=== PATIENT | female | born 1975 | race Caucasian/White ===

== ENCOUNTER → 2017-01-06 | Outpatient (CLI) | payer MEDICAID | LOC: FIMAGING 09:41 | PROVIDERS: ATTEND Nurse Practitioner | DX: D25.2 Subserosal leiomyoma of uterus (principal) ==

== ENCOUNTER 2018-08-24 15:11 | Emergency (ER) | payer MEDICAID ==
--- NOTE | 2018-08-24 15:39 | EDPHY ---
H & P Time Seen by Provider: 08/24/18 15:27 HPI/ROS: CHIEF COMPLAINT: Abdominal pain diarrhea HISTORY OF PRESENT ILLNESS: Patient is history of ulcerative colitis but has not had a flare in several years. Worse over the past month and much worse over the past week. Here with her boyfriend who also participates in give me the history. She is under extra stress with her cat having had repeated dental surgeries and some type of dispute with her neighbor. She last 10 lb this month. Associated with bloody mucus in her stool. No local pantograph setter. REVIEW OF SYSTEMS: Eye: no change in vision ENT: no sore throat Cardiac: no chest pain or syncope, does have lightheadedness Pulmonary: no cough or SOB Abdomen: The HPI Musculoskeletal: no back pain Skin: no rash Neuro: no headache Constitutional: no fever : no urinary symptoms A comprehensive 10 point review of systems is otherwise negative aside from elements mentioned in the history of present illness. PAST MEDICAL HISTORY: Ulcerative colitis diagnosed in [place] 6 years ago and scoliosis Social history: Primary care provider out of town, no pantograph setter General Appearance: Alert and conversant, cooperative. Eyes: No scleral icterus. ENT, Mouth: Dry mucous membranes. Respiratory: Normal respiratory effort, breath sounds equal, lungs are clear to auscultation. Cardiovascular: Regular rate and rhythm. Gastrointestinal: Abdomen is soft and non tender. Neurological: Alert, face symmetric, normal motor and sensory in extremities. Skin: Warm and dry, no rashes. Musculoskeletal: No peripheral edema. Psychiatric: Not agitated. Emergency Department course/MDM: Patient does not want steroids or anti-inflammatories. She would like a gastroenterology referral but wants to keep treating herself with elemental diet with her capsule maker. I think it is reasonable and that she is tachycardic and mildly dehydrated but isn't febrile or toxic and has a benign abdominal examination. 1709: Results discussed with the patient. Ariane recommends steroid taper then oral Mesalamine. Start Lialda 2.4g daily, 40mg prednisone daily x 2weeks, will call Monday for f/u next week. Discussed with the patient. Prescriptions written. She is a little bit reluctant to take medications because of previous reactions to medications 6 years ago [place], but will consider overnight start them tomorrow if she feels like she is able. Smoking Status: Former smoker Constitutional: Initial Vital Signs Temperature (C) 36.7 C 08/24/18 15:21 Heart Rate 102 H 08/24/18 15:21 Respiratory Rate 18 08/24/18 15:21 Blood Pressure 98/62 L 08/24/18 15:21 O2 Sat (%) 98 08/24/18 15:21 O2 Delivery Mode Room Air Allergies/Adverse Reactions: No Known Allergies Allergy (Unverified 08/24/18 15:21) Home Medications: Medication Instructions Recorded Mesalamine [Lialda] 2.4 gm PO DAILY #30 tablet. 08/24/18 predniSONE [prednisone 20mg (RX)] 40 mg PO AD 14 Days tab 08/24/18 Medical Decision Making Consult/Admit Bed Type: [place] [id number] - Data Points Laboratory Results: Laboratory Results 08/24/18 13:55 08/24/18 13:55 08/24/18 08/24/18 08/24/18 13:55 13:55 13:55 WBC RBC Hgb Hct MCV MCH MCHC RDW Plt Count MPV Neut % (Auto) Lymph % (Auto) Fleming % (Auto) Eos % (Auto) Baso % (Auto) Nucleat RBC Rel Count Absolute Neuts (auto) Absolute Lymphs (auto) Absolute Monos (auto) Absolute Eos (auto) Absolute Basos (auto) Absolute Nucleated RBC Immature Gran % Immature Gran # ESR Sodium 134 mEq/L L mEq/L (135-145) Potassium 3.9 mEq/L mEq/L (3.5-5.2) Chloride 104 mEq/L mEq/L (97-110) Carbon Dioxide 22 mEq/l mEq/l (22-31) Anion Gap 8 mEq/L mEq/L (6-14) BUN 12 mg/dL mg/dL (7-23) Creatinine 0.8 mg/dL mg/dL (0.6-1.0) Estimated GFR > 60 Glucose 87 mg/dL mg/dL (70-100) Calcium 9.4 mg/dL mg/dL (8.5-10.4) C-Reactive Protein < 5.0 mg/L mg/L (<10.0) Beta HCG, Qual NEGATIVE Urine Color YELLOW Urine Appearance CLEAR Urine pH 6.0 (5.0-7.5) Ur Specific [place] 1.008 (1.002-1.030) Urine Protein NEGATIVE (NEGATIVE) Urine Ketones NEGATIVE (NEGATIVE) Urine Blood 3+ H (NEGATIVE) Urine Nitrate NEGATIVE (NEGATIVE) Urine Bilirubin NEGATIVE (NEGATIVE) Urine Urobilinogen NEGATIVE EU EU (0.2-1.0) Ur Leukocyte Esterase NEGATIVE (NEGATIVE) Urine RBC 1-3 /hpf /hpf (0-3) Urine WBC 1-3 /hpf /hpf (0-3) Ur Epithelial Cells TRACE /lpf /lpf (NONE-1+) Urine Bacteria 1+ /hpf H /hpf (NONE SEEN) Urine Mucus TRACE /lpf /lpf (NONE-1+) Urine Glucose NEGATIVE (NEGATIVE) 08/24/18 13:55 WBC 8.30 10^3/uL 10^3/uL (3.80-9.50) RBC 4.83 10^6/uL 10^6/uL (4.18-5.33) Hgb 15.3 g/dL g/dL (12.6-16.3) Hct 44.7 % % (38.0-47.0) MCV 92.5 fL fL (81.5-99.8) MCH 31.7 pg pg (27.9-34.1) MCHC 34.2 g/dL g/dL (32.4-36.7) RDW 12.4 % % (11.5-15.2) Plt Count 238 10^3/uL 10^3/uL (150-400) MPV 12.9 fL H fL (8.7-11.7) Neut % (Auto) 48.5 % % (39.3-74.2) Lymph % (Auto) 25.1 % % (15.0-45.0) Fleming % (Auto) 10.8 % % (4.5-13.0) Eos % (Auto) 14.1 % H % (0.6-7.6) Baso % (Auto) 1.0 % % (0.3-1.7) Nucleat RBC Rel Count 0.0 % % (0.0-0.2) Absolute Neuts (auto) 4.03 10^3/uL 10^3/uL (1.70-6.50) Absolute Lymphs (auto) 2.08 10^3/uL 10^3/uL (1.00-3.00) Absolute Monos (auto) 0.90 10^3/uL H 10^3/uL (0.30-0.80) Absolute Eos (auto) 1.17 10^3/uL H 10^3/uL (0.03-0.40) Absolute Basos (auto) 0.08 10^3/uL 10^3/uL (0.02-0.10) Absolute Nucleated RBC 0.00 10^3/uL 10^3/uL (0-0.01) Immature Gran % 0.5 % % (0.0-1.1) Immature Gran # 0.04 10^3/uL 10^3/uL (0.00-0.10) ESR 13 MM/HR MM/HR (0-20) Sodium Potassium Chloride Carbon Dioxide Anion Gap BUN Creatinine Estimated GFR Glucose Calcium C-Reactive Protein Beta HCG, Qual Urine Color Urine Appearance Urine pH Ur Specific [place] Urine Protein Urine Ketones Urine Blood Urine Nitrate Urine Bilirubin Urine Urobilinogen Ur Leukocyte Esterase Urine RBC Urine WBC Ur Epithelial Cells Urine Bacteria Urine Mucus Urine Glucose Microbiology Results: MICROBIOLOGY 08/24/18 15:55 Stool Gastrointestinal Tract Panel (PCR) - Final No Organism Detected By Pcr Medications Given: Discontinued Medications Sodium Chloride (Ns) 1,000 mls @ 0 mls/hr IV EDNOW ONE; Wide Open PRN Reason: Protocol Stop: 08/24/18 15:54 Last Admin: 08/24/18 16:00 Dose: 1,000 mls Sodium Chloride (Ns) 1,000 mls @ 0 mls/hr IV EDNOW ONE; Wide Open PRN Reason: Protocol Stop: 08/24/18 15:54 Last Admin: 08/24/18 16:23 Dose: 1,000 mls Departure - Departure Disposition: Home, Routine, Self-Care Clinical Impression: Dehydration Ulcerative colitis Qualifiers: Ulcerative colitis location: other ulcerative colitis Digestive disease complication type: without complication Qualified Code(s): K51.80 - Other ulcerative colitis without complications Condition: Good Instructions: Dehydration (ED), Ulcerative Colitis (ED) Referrals: Yesenia Hull MD [Primary Care Provider] - As per Instructions Cici Thakkar MD [Medical Doctor] - As per Instructions Prescriptions: Mesalamine [Lialda] 2.4 gm PO DAILY #30 tablet. predniSONE [prednisone 20mg (RX)] 40 mg PO AD 14 Days tab
[2018-08-24] MEDS ORDERED: NS 1,000 ML IV ONE ×2 (15:53)
[2018-08-24 16:10] LABS: PLATELET COUNT 238 10^3/uL (150-400)
[2018-08-24 17:59] VITALS: BP 111/68
--- NOTE | 2018-08-27 18:25 | ASMTCMCOM ---
CM Note CM Note Notes: Pt seen in the ED 08/24/[address] Thakkar at [facility], who was on-call at the time of pt's ED visit. Pt has Medicaid. This CM sent ED Report and referral to [facility] and requested they reach out to pt to schedule a followup appt. Date Signed: 08/27/2018 06:24 PM Electronically Signed By:Marlen Paul RN
== END 2018-08-24 17:59 | disposition home or self-care (01) ==
DX: K51.80 Other ulcerative colitis without complications (principal); E86.0 Dehydration